=== PATIENT | male | born 1985 | race Caucasian/White ===

== ENCOUNTER 2025-04-01 06:05 | Emergency (ER) | payer OTHER, SELFPAY ==
[2025-04-01 06:08] VITALS: BP 143/97; PULSE 85; RESP 18; TEMP 36.9; O2SAT 96
--- NOTE | 2025-04-01 06:22 | ED_ITS ---
HPI - Animal Bite General Chief Complaint: Animal Bite Stated Complaint: racoon bite Time Seen by Provider: 04/01/25 06:31 History of Present Illness HPI narrative: 40-year-old otherwise healthy male presenting to the emergency department for raccoon bite to the tip of his right middle finger. He is concerned about rabies. He has never had the rabies series before. Wound is to the distal finger tip and does violate into the muscle. No pain or restricted range of motion. No bleeding. No signs of infection currently in this just occurred prior to arrival. No other bites and no other injuries. He states he was just trying to take out the trash and feed one of the raccoons in the trash who bit him. Related Data Allergies Allergy/AdvReac Type Severity Reaction Status Date / Time mold Allergy Unknown Other Verified 04/01/25 06:14 Review of Systems Review of Systems: As reviewed above in HPI Exam Narrative: GENERAL: [Well-appearing, well-nourished, and in no acute distress.] HEAD: [Normocephalic, atraumatic.] EYES: [PERRLA and EOMI.] ENT: Nares clear, no rhinorrhea or epistaxis. Mucous membranes moist. NECK: Supple. CHEST: [Clear to auscultation. No respiratory distress.] HEART: [Regular rate and rhythm]. No murmur heard. [Normal peripheral pulses.] ABDOMEN: [Soft, nondistended], [nontender], [No rigidity or guarding] EXTREMITIES: Normal range of motion. [No edema.] Distal right middle finger tip has a area of punctate wound that goes to the muscle layer from raccoon bite, no bleeding or purulent drainage, no retained foreign material. Good distal cap refill, good range of motion. SKIN: Warm, dry, no rash. NEURO: [No focal deficits]. Alert and oriented [x3.] PSYCH: [Normal mood and affect.] Course Vital Signs Vital signs: Vital Signs Temperature 36.9 C 04/01/25 06:08 Pulse Rate 85 04/01/25 06:08 Respiratory Rate 18 04/01/25 06:08 Blood Pressure 143/97 H 04/01/25 06:08 Pulse Oximetry 96 04/01/25 06:08 Oxygen Delivery Room Air 04/01/25 06:08 Temperature 36.9 C 04/01/25 06:08 Pulse Rate 85 04/01/25 06:08 Respiratory Rate 18 04/01/25 06:08 Blood Pressure 143/97 H 04/01/25 06:08 Pulse Oximetry 96 04/01/25 06:08 Oxygen Delivery Room Air 04/01/25 06:08 MDM - Animal Bite MDM Narrative Medical decision making narrative: 40-year-old otherwise healthy male presenting to the emergency department for raccoon bite to the tip of his right middle finger. He is concerned about rabies. He has never had the rabies series before. Wound is to the distal finger tip and does violate into the muscle. No pain or restricted range of motion. No bleeding. No signs of infection currently in this just occurred prior to arrival. No other bites and no other injuries. He states he was just trying to take out the trash and feed one of the raccoons in the trash who bit him. Patient does have a small puncture wound to the right tip of his middle finger that does go into the soft tissues under the skin. No bleeding or significant wound dehiscence or signs of infection. He is afebrile, normal vital signs. Given patient's high risk mammalian bite with potential for rabies exposure given we did discuss the risks and benefits of initiation of rabies immunoglobulin and vaccine and he would like to proceed. He was given 20 units/kilogram of rabies immunoglobulin locally infiltrated into the wound margins and then the rest into his deltoid. Contralateral arm was given the vaccine. Our infectious disease specialist Sheela Jarrett was called to arrange for continued rabies series on outpatient basis and he was given a 1st dose of Augmentin for bacterial prophylaxis. Patient comfortable with the plan will be discharged home with continued baby series outpatient. He was given signs and symptoms to look out for and discharged. Prescription pad was filled out for days 3 7 and 14 of vaccine series and left with the charge nurse wall infectious disease specialist will come and pick it up to contact the patient for remaining administration. Medical Records Attestation: I reviewed the patient's medical records. Discharge Plan Discharge Clinical Impression: Bitten by raccoon, Rabies contact Patient Disposition: Home Condition: Stable Instructions: Antibiotic Form, Rabies Vaccine (By injection), Rabies Immune Globulin (By injection), Rabies (ED) Additional Instructions: You will have to follow up for the remaining vaccine doses on day 3 day 7 and day 14. We will have our infectious disease specialist reach out and contact you to arrange this on outpatient basis. He will also need antibiotics for the next 5 days and we will prescribe this. Return with any emergent concerns or worsening or new symptoms. Keep the area clean and dry and you can apply bandage over top of the wound. Patient Language: Vietnamese Prescriptions: New amoxicillin-pot clavulanate 875-125 mg tablet 1 tablet PO Q12H 5 Days Qty: 10 0RF Follow-up/Referrals: PHYSICIAN,RESIDENTIAL HOUSEKEEPER [Primary Care Provider] - Time of Disposition: 06:31
[2025-04-01] MEDS: TETANUS,DIPHTHERIA,AC PERTUSSIS ADULT (0.5 ML) BOOSTRIX IM (06:32)
[2025-04-01] MEDS: RABIES IMMUNE GLOBULIN/PF 1,500 UNITS/5 ML VIAL 1500 UNITS IM (06:39)
[2025-04-01] MEDS: RABIES IMMUNE GLOBULIN/PF 900 UNITS/3 ML VIAL IM (06:39)
[2025-04-01] MEDS: RABIES VACCINE (RABAVERT) 2.5 UNITS VIAL IM (06:40)
--- NOTE | 2025-04-01 07:06 | PC.NURSE ---
0624 Desiree with infection control/disease prevention calls to inform that have ERP give immuno globulin at bite site and give the rest of the immuno globulin in L deltoid, give the vaccine and tetanus in the R deltoid. Meds given per orders of ERP and direction of Desiree.
--- OUTSIDE RECORDS SUMMARY | 2025-04-01 07:10 | XMS_ITS | Encounter Summary ---
Author Organization [employer] Address [address] [place] [address] Care Team Providers Care Customer Care Voice Consultant Name Role Phone Daniel Lopez DO Primary Care Provider [phone] Encounter Details Date Type Department Care Team (Late st Contact Info) Description 05/20/2006 Orders Only [facility] [address] [place] [address] [place] [phone] [place] [address] [place] [employer] [address] [place] [phone] Social History Tobacco Use Types Packs/Day Years Used Date Smoking Tobacco: Never Assessed Sex and Gender Information Value Date Recorded Sex Assigned at Not on file 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
--- OUTSIDE RECORDS SUMMARY | 2025-04-01 07:10 | XMS_ITS | Encounter Summary ---
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 Mom will stop back later today to p/u /SE DOCTOR`S RESPONSE: christoph 02/09/06 at 12:05 pm MEDICATIONS: Call in to Pharmacy ADDERALL XR ORAL CAPSULE 24 HR 25 MG, 1 Every Day, 30 Dispensed, 30 Duration/Days Supply, status: CONTINUED, 02/09/2006. DOCTOR`S OTHER RESPONSE: Printed and signed /ARS FINAL ACTION: austin 02/09/06 at 01:02 pm Left message on patient`s recorder or with a family member 02/09/2006 at 01:03 pm. /sb Electronically Signed by: Viry Neri on Thursday, February 09, 2006 documented in this encounter Plan of Treatment Not on file documented as of this encounter Visit Diagnoses Not on filedocumented in this encounter Care Teams Jinrikisha Driver Relationship Specialty Start Date End Date Daniel Lopez DO [address] [place] [phone] PCP - General 11/24/12 documented as of this encounter
--- OUTSIDE RECORDS SUMMARY | 2025-04-01 07:10 | XMS_ITS | Encounter Summary ---
Author Organization [employer] Address [address] [place] [address] Care Team Providers Care Yarn Twister Name Role Phone Daniel Lopez DO Primary Care Provider [phone] Encounter Details Date Type Department Care Team (Late st Contact Info) Description 09/29/2006 Orders Only [facility] [address] [place] [address] [place] [phone] [place] [address] [place] [employer] [address] [place] [phone] Social History Tobacco Use Types Packs/Day Years Used Date Smoking Tobacco: Never Assessed Sex and Gender Information Value Date Recorded Sex Assigned at Not on file Legal Sex Male 3:[address]ER Gender Identity Not on file Sexual Orientation Not on file documented as of this encounter Plan of Treatment Not on file documented as of this encounter Visit Diagnoses Not on filedocumented in this encounter Care Teams Yarn Twister Relationship Specialty Start Date End Date Daniel Lopez DO [address] [place] [phone] PCP - General 11/24/12 documented as of this encounter
--- OUTSIDE RECORDS SUMMARY | 2025-04-01 07:10 | XMS_ITS | Encounter Summary ---
Author Organization [employer] Address 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
--- OUTSIDE RECORDS SUMMARY | 2025-04-01 07:10 | XMS_ITS | Clinical Summary ---
Author Organization [facility] Address [address] [place] [address] Care Team Providers Care Sand Mill Operator Name Role Phone Lenora Prince DO Primary Care Provider [phone] Source Comments [facility],non-owned Affiliates and Associated Physician Practices is amultiple site organization consisting of ambulatory clinics and hospital sitesin [place], [place], [place] and [place]. This disclosure is being madepursuant to the Care Everywhere program and may not contain all information available regarding this patient. Last updated 18.[facility] Allergies No known active allergies Medications * Be aware that medications may not be up to date on this document. Alwaysverify current medications with the patient. Budesonide-Form oterol Fumarate (SYMBICORT IN) Activ e Albuterol Sulfate (PROAIR HFA IN) Active HYDROcodone-jennie taminophen (NORCO) 5-325 MG tablet Take 1 Tab by mouth every 6 hours as needed for Pain 8 Tab 7 Active naproxen (NAPROSYN) 500 MG tablet Take 1 Tab by mouth 2 times daily as needed for Pain 20 Tab 7 Active tiZANidine (ZANAFLEX) 2 MG capsule Take 1 Cap by mouth every 8 hours as needed for Muscle Spasms 15 Cap 7 Active albuterol HFA (PROVENTIL;VENT CATA;PROAIR) 108 (90 BASE) MCG/ACT inhaler Inhale 2 Puffs by mouth every 4 hours as needed for Shortness of Breath or Wheezing 1 Inhaler 1 7 Active Immunizations Immunization Administration Dates Next Due TDAP (7yrs+) 06/28/2017 Social History Tobacco Use Types Packs/Day Years Used Date Smoking Tobacco: Never Smokeless Tobacco: Never Alcohol Use Standard Drinks/Week Comments Yes 0 (1 standard drink = 0.6 oz pur e alcohol) occ Sex and Gender Information Value Date Recorded Sex Assigned at Not on file Legal Sex Male 7:37 AM CDT Gender Identity Not on file Sexual Orientation Not on file Last Filed Vital Signs Vital Sign Reading Time Taken Comments Blood Pressure 167/96 06/28/2017 10:33 AM CDT Pulse 101 06/28/2017 7:38 AM CDT Temperature 36.8 C (98.2 F) 06/28/2017 7:38 AM CDT Respiratory Rate 16 06/28/2017 7:38 AM CDT Oxygen Saturation 95% 06/28/2017 10:33 AM CDT Inhaled Oxygen Concentration - - Weight 172.4 kg (380 lb) 06/28/2017 7:46 AM CDT Height 195.6 cm (6' 5) 06/28/2017 7:46 AM CDT Body Mass Index 45.06 06/28/2017 7:46 AM CDT Plan of Treatment Health Maintenance Due Date Last Done Comments HIV SCREENING 2002 HEPATITIS C SCREENING 01/04/2005 HEPATITIS B VACCINE (1 of 3 - 19+ 3-dose series) 2006 COVID-19 VACCINE (2023-2 5 season) 2024 DEPRESSION SCREENING 09/27/2024 INFLUENZA VACCINE (Season Ended) 2025 DTAP/TDAP/TD VACCINES (2 - T d or Tdap) 06/28/2027 06/28/2017 ZOSTER VACCINE (1 of 2) 2037 HIB VACCINE Aged Out No longer eligi ble based on patient's age to complete this topic HPV VACCINE Aged Out No longer eligi ble based on patient's age to complete this topic MENINGOCOCCAL (Group B) VACC INE SHARED DECISION-MAKING Aged Out No longer eligibl e based on patient's age to complete this topic MENINGOCOCCAL GROUPS A/C/Y/W VACCINE Aged Out No longer eligible b ased on patient's age to complete this topic PNEUMOCOCCAL VACCINE Aged Out No long er eligible based on patient's age to complete this topic Insurance [employer] Liability [facility] Member Subscriber Plan / Payer (Ef fective 2017-Present) Name:Toi Huitron Relation to Subscriber:Self Name:Toi Hiutron Payer ID:[id number] (NAIC) Type:HMO Address: [address] [facility] [place] [address] Care Teams Sand Mill Operator Relationship Specialty Start Date End Date Lenora Prince DO [address] [place] [address] [place] [address] PCP - General Family Medicine 06/28/17
--- OUTSIDE RECORDS SUMMARY | 2025-04-01 07:10 | XMS_ITS | Encounter Summary ---
Author Organization [employer] Address [address] [place] [address] Care Team Providers Care Robot Programmer Name Role Phone Daniel Lopez DO Primary Care Provider [phone] Encounter Details Date Type Department Care Team (Late st Contact Info) Description 11/01/2006 Orders Only [facility] [address] [place] [address] [place] [phone] [place] [address] [place] [employer] [address] [place] [phone] Social History Tobacco Use Types Packs/Day Years Used Date Smoking Tobacco: Never Assessed Sex and Gender Information Value Date Recorded Sex Assigned at Not on file 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
--- OUTSIDE RECORDS SUMMARY | 2025-04-01 07:10 | XMS_ITS | Encounter Summary ---
Author Organization [facility] Address [address] [facility] Attn: Epic Prelude ADT [place] [address] Care Team Providers Care Anodic Treater Name Role Phone Daniel Lopez DO Primary Care Provider [phone] Encounter Details Date Type Department Care Team (Latest Contact Info) Description 03/17/2006 Orders Only Isaias Ho MD [address] [place] [phone] Social History Tobacco Use Types Packs/Day Years Used Date Smoking Tobacco: Never Assessed Sex and Gender Information Value Date Recorded Sex Assigned at Not on file 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 WHO TOOK THE CALL: Caryn Cuarda R GENERAL INFORMATION PATIENT STATUS: Established Patient. LAST VISIT: 06-18-05 WHO CALLED: Patient`s mother called. ALTERNATIVE PHONE NUMBER: [phone] CURRENT ALLERGY LIST: NKDA SECTION 1: REQUESTED ACTION anthony 03/17/06 at 09:55 am: MEDICATION REQUEST: MEDICATION REQUEST: Patient requests a refill. Mom requesting a refill for the Adderall-XR 25mg (I didn't print prescription, wasn't sure due to date of last visit?)/laith DOCTOR`S RESPONSE: christoph 03/17/06 at 10:16 am MEDICATIONS: ADDERALL XR ORAL CAPSULE 24 HR 25 MG, 1 Every Day, 30 Dispensed, 30 Duration/Days Supply, status: CONTINUED, 03/17/2006. FINAL ACTION: christoph 03/17/06 at 10:17 am Electronically Signed by: Isaias Ho MD on Friday, March 17, 2006 documented in this encounter Plan of Treatment Not on file documented as of this encounter Visit Diagnoses Not on filedocumented in this encounter Care Teams Anodic Treater Relationship Specialty Start Date End Date Daniel Lopez DO [address] [place] [phone] PCP - General 11/24/12 documented as of this encounter
--- OUTSIDE RECORDS SUMMARY | 2025-04-01 07:10 | XMS_ITS | Encounter Summary ---
Author Organization [employer] Address [address] [place] [address] Care Team Providers Care Phone Screener Name Role Phone Daniel Lopez DO Primary Care Provider [phone] Encounter Details Date Type Department Care Team (Late st Contact Info) Description 11/30/2006 Orders Only [facility] [address] [place] [address] [place] [phone] [place] [address] [place] [employer] [address] [place] [phone] Social History Tobacco Use Types Packs/Day Years Used Date Smoking Tobacco: Never Assessed Sex and Gender Information Value Date Recorded Sex Assigned at Not on file 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
--- OUTSIDE RECORDS SUMMARY | 2025-04-01 07:10 | XMS_ITS | Encounter Summary ---
Author Organization [employer] Address [address] [place] [address] Care Team Providers Care Salt Maker Name Role Phone Daniel Lopez DO Primary Care Provider [phone] Encounter Details Date Type Department Care Team (Late st Contact Info) Description 07/15/2006 Orders Only [facility] [address] [place] [address] [place] [phone] [place] [address] [place] [employer] [address] [place] [phone] Social History Tobacco Use Types Packs/Day Years Used Date Smoking Tobacco: Never Assessed Sex and Gender Information Value Date Recorded Sex Assigned at Not on file 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
--- OUTSIDE RECORDS SUMMARY | 2025-04-01 07:10 | XMS_ITS | Encounter Summary ---
Author Organization [facility] Address [address] [place] [address] Care Team Providers Care Aerial Crop Duster Name Role Phone Daniel Lopez DO Primary Care Provider [phone] Encounter Details Date Type Department Care Team (Late st Contact Info) Description 11/02/2023 Abstract [facility] [address] [address] [place] [phone] Marc Brown MD [address] [address] [place] [employer] [address] [place] [address] Social History Tobacco Use Types Packs/Day Years Used Date Smoking Tobacco: Never Smokeless Tobacco: Never Alcohol Use Standard Drinks/Week Comments Yes 0 (1 standard drink = 0.6 oz pur e alcohol) occas Sex and Gender Information Value Date Recorded Sex Assigned at Not on file 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
--- OUTSIDE RECORDS SUMMARY | 2025-04-01 07:10 | XMS_ITS | Encounter Summary ---
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 SECTION 1: REQUESTED ACTION austin 12/30/05 at 12:15 pm: MEDICATION REQUEST: MEDICATIONS: ADDERALL XR ORAL CAPSULE 24 HR 25 MG, 1 Every Day, 30 Dispensed, 30 Duration/Days Supply, status: CONTINUED, 08/25/2005. DOCTOR`S RESPONSE: christoph 12/30/05 at 12:42 pm MEDICATIONS: Call in to Pharmacy ADDERALL XR ORAL CAPSULE 24 HR 25 MG, 1 Every Day, 30 Dispensed, 30 Duration/Days Supply, status: CONTINUED, 12/30/2005. DOCTOR`S OTHER RESPONSE: Printed and signed /ARS FINAL ACTION: austin 12/30/05 at 01:03 pm Spoke with patient 12/30/05 at 01:03 pm. Spoke to mom/sb Electronically Signed by: Viry Neri on Friday, December 30, 2005 documented in this encounter Plan of Treatment Not on file documented as of this encounter Visit Diagnoses Not on filedocumented in this encounter Care Teams Oracle Business Analyst Relationship Specialty Start Date End Date Daniel Lopez DO [address] [place] [phone] PCP - General 11/24/12 documented as of this encounter
--- OUTSIDE RECORDS SUMMARY | 2025-04-01 07:10 | XMS_ITS | Clinical Summary ---
Author Organization [facility] Address [address] [address] Care Team Providers Care Health Care Specialist Name Role Phone Daniel Lopez DO Primary Care Provider [phone] Allergies Active Allergy Reactions Criticality Noted Date Comments Horse Dander Shortness of Breath/Wheezing High 06/01 Mold Extracts Unknown 07/13/2013 Medications budesonide-form oteroL (SYMBICORT) 80-4.5 mcg/actuation HFA Aerosol Inhaler Take 2 Puffs by inhalation 2 times daily. 30.6 Gram 1 3 Active Active Problems Problem Noted Date Diagnosed Date Type 2 diabetes mellitus wit hout complication, without long-term current use of insulin 11/15/2023 Elevated blood pressure read ing without diagnosis of hypertension 11/15/2023 Encounter for general adult medical examination without abnormal findings 11/15/2023 Mild intermittent asthma without complication Obstructive sleep apnea 11/15/2023 Prediabetes 07/31/2020 Extrinsic asthma 01/20/2011 ATTN DEFICIT NONHYPERACT 06/18/2005 Resolved Problems Problem Noted Date Diagnosed Date Resolved Date ASTHMA UNSPEC W STATUS ASTH 06/24/2005 07/13/2013 Encounters Date Type Department Care Team Description 03/13/2025 External Device Data ST[facility] ABSTRACTION Provider, Abstract 02/27/2025 External Device Data ST[facility] ABSTRACTION Provider, Abstract 02/22/2025 Orders Only [facility] Internal Medicine - Keira Mcnulty [address] [address] Daniel Lopez DO Type 2 diabetes mellitus without complication, without long-term current use of insulin (CMS/HCC) 01/25/2025 Abstract [facility] Internal Medicine [facility] [address] [address] Daniel Lopez DO 01/22/2025 8:00 AM CDT Office Visit [facility] [address] [address] Ping Hernandez PA Encounter for preventive care (Primary Dx); Type 2 diabetes mellitus without complication, without long-term current use of insulin (CMS/[facility]); Declined influenza vaccine 01/22/2025 Abstract [facility] Internal Medicine [facility] [address] [address] Daniel Lopez DO from Last 3 Months Immunizations Immunization Administration Dates Next Due (ADACEL/BOOSTRIX)(10 YR UP) TDAP VACCINE, 0.5ML, IM 06/28/2017 (PFIZER)(12 YR UP) COVID-19 VACCINE - EMERGENCY USE AUTHORIZATION, MRNA, [id number](PF) 30 MCG/0.3 ML IM SUSP 11/23/2020,10/26/2020 INFLUENZA VACCINE QUADRIVALENT 6 MOS UP PF IM INFLUENZA VACCINE QUADRIVALENT RECOMB 18 YR UP P F IM 06/23/2018 Family History Medical History Relation Name Comments Pancreatic Cancer Father 56 Other Mother in sleep a t age 50, no known cause Relation Name Status Comments Father 56 Mother Social History Tobacco Use Types Packs/Day Years Used Date Smoking Tobacco: Never Smokeless Tobacco: Never Tobacco Cessation:Counseling Given: No Alcohol Use Standard Drinks/Week Comments Yes 0 (1 standard drink = 0.6 oz pur e alcohol) occas Feeling Safe Answer Date Recorded Are you in a relationship wi th someone who hurts you emotionally and/or physically? 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 Gender Identity Not on file Sexual Orientation Not on file Last Filed Vital Signs Vital Sign Reading Time Taken Comments Blood Pressure 122/70 01/22/2025 8:04 AM CDT Pulse 71 01/22/2025 8:04 AM CDT Temperature 37.6 C (99.7 F) 11/16/2023 3:10 PM FIRE HYDRANT MECHANIC RN notified Respiratory Rate 17 11/16/2023 3:10 PM FIRE HYDRANT MECHANIC Oxygen Saturation 96% 01/22/2025 8:04 AM CDT Inhaled Oxygen Concentration - - Weight 123.4 kg (272 lb) 01/22/2025 8:04 AM CDT Height 195.6 cm (6' 5) 01/22/2025 8:04 AM CDT Body Mass Index 32.25 01/22/2025 8:04 AM CDT Plan of Treatment Health Maintenance Due Date Last Done Comments HEPATITIS B VACCINES (1 of 3 - 19+ 3-dose series) 2006 COVID-19 Vaccine ( season) 2024 11/23/2020, 10/26/2020 DIABETES ANNUAL FOOT EXAM 07/21/2024 07/21/2023, 12/2021 DIABETES HBA1C Q 6 MONTHS 07/26/20242023, 11/02/2023, 07/26/2023, Additional history exists LDL CHOLESTEROL ANNUAL 11/02/2024 4, 03/10/2023, 12/29/2021, Additional history exists DIABETES ANNUAL RETINAL EXAM 11/19/2024 11/19/2023 DIABETES MICROALBUMIN ANNUAL SCREEN 01/24/2025 01/25/2024, 07/31/2020 DIABETES: A1C (Auto Order) 01/24/202501/24, 11/02/2023, 07/26/2023, Additional history exists INFLUENZA VACCINE (#1) 2025 5, 07/21/2023, 12/29/2021, Additional history exists DTAP/TDAP/TD VACCINES (2 - Td or Tdap) 06/28/2027 06/28/2017 HPV VACCINES Aged Out No longer eligi ble based on patient's age to complete this topic Medical Devices Implanted Type Area Cnc Specialist Device Identifier Shelf Expiration Date Model / Serial / Lot Seamguard Endogia 60 Blk [id number] - [id number] Implanted:Qt y: 1 on 11/15/2023 by Marc Brown MD at [facility] N/A: Stomach [employer] [id number] 06/07/2026 12BSGTRI 60B / / [id number] Seamguard Endogia 60 Blk [id number] - [id number] Implanted:Qt y: 1 on 11/15/2023 by Marc Brown MD at [facility] N/A: Stomach [employer] [id number] 06/07/2026 12BSGTRI 60B / / [id number] Seamguard Endogia 60 Prpl [id number] - [id number] Implanted:Qt y: 1 on 11/15/2023 by Marc Brown MD at [facility] N/A: Stomach [employer] [id number] 06/16/2026 12BSGTRI 60P / / [id number] Seamguard Endogia 60 Prpl [id number] - [id number] Implanted:Qt y: 1 on 11/15/2023 by Marc Brown MD at [facility] N/A: Stomach [employer] [id number] 06/16/2026 12BSGTRI 60P / / [id number] Seamguard Endogia 60 Prpl [id number] - [id number] Implanted:Qt y: 1 on 11/15/2023 by Marc Brown MD at [facility] N/A: Stomach [employer] [id number] 06/16/2026 12BSGTRI 60P / / [id number] Procedures Procedure Name Priority Date/Time Associated Diagnosis Comments MICROALBUMIN/CREATIN INE RATIO, RANDOM UR Routine 01/25/2024 10:30 AM CDT Type 2 diabetes mellitus without complication, without long-term current use of insulin ([facility]) HEMOGLOBIN A1C Routine 01/25/2024 10:22 AM CDT DIABETES EYE EXAM Routine 11/19/2023 12:27 PM FIRE HYDRANT MECHANIC LIPID PANEL Routine 11/02/2023 2:33 PM FIRE HYDRANT MECHANIC Encounter for preventive care from Last 3 Months or Most Recently Relevant to Health Maintenance Results * (ABNORMAL) MICROALBUMIN/CREATININE RATIO, RANDOM UR (01/25/2024 10:30 AM CDT) Creatinine, Urine 354(H) 20 - 320 mg/dL [facility] Comment: Verified by repeat analysis. MICROALBUMIN, URINE 1.3 See Note: mg/dL [facility] Comment: Reference Range: Reference Range Not established MICROALBUMIN/CREAT RATIO, UR 4 <30 mg/g creat [facility] Comment: The ADA defines abnormalities in albumin excretion as follows: Albuminuria Category Result (mg/g creatinine) Normal to Mildly increased <30 Moderately increased 30-299 Severely increased > OR = 300 The ADA recommends that at least two of three specimens collected within a 3-6 month period be abnormal before considering a patient to be within a diagnostic category. Test Performed at: [facility] [address] [phone] Debi Burk MD Urine URINE SPECIMEN OBTAINED BY CLEAN CATCH PROCEDURE / Unknown 01/25/2024 10:30 AM CDT 01/25/2024 10:31 AM CDT Viry CRAWFORD URINE ORDERABLES Final Result [facility] [phone] [facility] [address] [phone] * (ABNORMAL) HEMOGLOBIN A1C (01/25/2024 10:22 AM CDT) HEMOGLOBIN A1C 6.2(H) <5.7 % of total Hgb [facility] Comment: For someone without known diabetes, a hemoglobin A1c value between 5.7% and 6.4% is consistent with prediabetes and should be confirmed with a follow-up test. For someone with known diabetes, a value <7% indicates that their diabetes is well controlled. A1c targets should be individualized based on duration of diabetes, age, comorbid conditions, and other considerations. This assay result is consistent with an increased risk of diabetes. Currently, no consensus exists regarding use of hemoglobin A1c for diagnosis of diabetes for children. ESTIMATED AVERAGE GLUCOSE (MG/DL) 131 mg/dL [facility] ESTIMATED AVERAGE GLUCOSE (MMOL/L) 7.3 mmol/L [facility] Comment: This test was performed on the Lincoln juan c c503 platform. Effective 12/13/23, a change in test platforms from the Reyes Otolaryngology Surgeon to the Lincoln juan c c503 may have shifted HbA1c results compared to historical results. Based on laboratory validation testing conducted at [facility], the Lincoln platform relative to the Reyes platform had an average increase in HbA1c value of < or = 0.3%. This difference is within accepted variability established by the National Glycohemoglobin Standardization Program. Note that not all individuals will have had a shift in their results and direct comparisons between historical and current results for testing conducted on different platforms is not recommended. FASTING:NO FASTING: NO Test Performed at: [facility] [address] [place] [address] [facility]Anna Marika Burk 01/25/2024 10:2 2 AM CDT 01/25/2024 10:26 AM CDT Viry CRAWFORD CHEMISTRY ORDERABLES Final Re sult [facility] [phone] [facility] [address] [place] [address] * HM DIABETES EYE EXAM (11/19/2023 12:27 PM FIRE HYDRANT MECHANIC) us Daniel Lopez DO HEALTH MAINTENANCE Final Result [facility] CLIA# [id number] [address] [facility] [place] [address] * (ABNORMAL) LIPID PANEL (11/02/2023 2:33 PM FIRE HYDRANT MECHANIC) [facility] Signature CHOLESTEROL 177 <200 mg/dL [facility] HDL 41 > OR = 40 mg/dL [facility] TRIGLYCERIDE 172(H) <150 mg/dL [facility] LDL CALCULATED 107(H) mg/dL (calc) [facility] Comment: Reference range: <100 Desirable range <100 mg/dL for primary prevention; <70 mg/dL for patients with CHD or diabetic patients with > or = 2 CHD risk factors. LDL-C is now calculated using the Merle calculation, which is a validated novel method providing better accuracy than the Friedewald equation in the estimation of LDL-C. Rj GIFFORD et al. JULIO. 2013;310(19): 3935-4829 (http://education.AB Tasty/faq/LZF903) CHOL/HDL RATIO 4.3 <5.0 (calc) [facility] TOTAL NON-HDL CHOL(LDL+VLDL) 136(H) <130 mg/dL (calc) [facility] Comment: For patients with diabetes plus 1 major ASCVD risk factor, treating to a non-HDL-C goal of <100 mg/dL (LDL-C of <70 mg/dL) is considered a therapeutic option. Test Performed at: [facility] [address] [address] Debi Burk Blood 11/02/2023 2:33 PM FIRE HYDRANT MECHANIC 11/02/2023 2:34 PM FIRE HYDRANT MECHANIC Viry CRAWFORD CHEMISTRY ORDERABLES Final Re sult [facility] [phone] [facility] [address] [phone] from Last 3 Months or Most Recently Relevant to Health Maintenance Insurance RX DOE PLANS (INTERNAL) [employer] [employer] OPEN ACCESS HMO * Guarantor: [facility] (OM) Account Type Relation to Patient Date of Phone Billing Address Corporate Other [id number] [address] [address] Advance Directives For more information, please contact: [phone] * Full Code (Latest Code Status on File) Date Activated Date Inactivated Comments 11/15/2023 12:38 PM 11/16/2023 5:47 PM * Full Code Date Activated Date Inactivated Comments 11/15/2023 11:43 AM 11/15/2023 12:38 PM * Full Code Date Activated Date Inactivated Comments 12/09/2018 8:39 AM 12/09/2018 11:29 AM Care Teams Health Care Specialist Relationship Specialty Start Date End Date Daniel Lopez DO [address] [phone] PCP - General 11/24/12
--- OUTSIDE RECORDS SUMMARY | 2025-04-01 07:10 | XMS_ITS | Encounter Summary ---
Author Organization [facility] Address [address] [place] [address] Care Team Providers Care Assignment Desk Editor Name Role Phone Daniel Lopez DO Primary Care Provider [phone] Encounter Details Date Type Department Care Team (Late st Contact Info) Description 06/18/2005 Outpatient Historical [facility] MEDICINE [address] [place] [address] 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 Gender Identity Not on file Sexual Orientation Not on file documented as of this encounter Last Filed Vital Signs Vital Sign Reading Time Taken Comments Blood Pressure 122/76 06/18/2005 11:00 AM CDT Pulse 72 06/18/2005 11:00 AM CDT Temperature 35.6 C (96.1 F) 06/18/2005 11:00 AM CDT Respiratory Rate 16 06/18/2005 11:00 AM CDT Oxygen Saturation - - Inhaled Oxygen Concentration - - Weight 134.3 kg (296 lb) 06/18/2005 11:00 AM CDT Height 196.9 cm (6' 5.5) 06/18/2005 11:00 AM CD T Body Mass Index 34.65 06/18/2005 11:00 AM CDT Body Mass Index Percentile 97.84% 06/18/2005 11: 00 AM CDT Growth Chart: CDC (Boys, 2-2 0 Years) documented in this encounter Plan of Treatment Not on file documented as of this encounter Visit Diagnoses Not on filedocumented in this encounter Care Teams Assignment Desk Editor Relationship Specialty Start Date End Date Daniel Lopez DO [address] [place] [phone] PCP - General 11/24/12 documented as of this encounter
--- OUTSIDE RECORDS SUMMARY | 2025-04-01 07:10 | XMS_ITS | Encounter Summary ---
Author Organization [employer] Address [address] [place] [address] Care Team Providers Care Anesthesia Director Name Role Phone Daniel Lopez DO Primary Care Provider [phone] Encounter Details Date Type Department Care Team (Late st Contact Info) Description 08/18/2006 Orders Only [facility] [address] [place] [address] [address] [phone] [place] [address] [place] [employer] [address] [place] [phone] Social History Tobacco Use Types Packs/Day Years Used Date Smoking Tobacco: Never Assessed Sex and Gender Information Value Date Recorded Sex Assigned at Not on file 

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
== END 2025-04-01 07:12 | disposition home or self-care (01) ==
LOC: ANHED 07:08
PROVIDERS: Emergency Provider Student in an Organized Health Care Education/Training Program
DX: S61.252A Open bite of right middle finger without damage to nail, initial encounter (principal); W55.51XA Bitten by raccoon, initial encounter; Z20.3 Contact with and (suspected) exposure to rabies; Z23 Encounter for immunization
CPT/HCPCS: 90375; 90471; 90472; 90675; 90715; 96372; 99284; A9270

== ENCOUNTER 2025-04-04 06:55 | Outpatient (RCR) | payer OTHER, SELFPAY ==
--- NOTE | 2025-04-04 07:24 | PC.NURSE ---
AMBULATORY TO LAB DRAW STATION FOR OUTPATIENT RABIES VACCINE AFTER RACCOON BITE. STATES IS FEELING WELL. DENIES BODY ACHES, NAUSEA, INJECTION SITE SORENESS. BITE ON INDEX FINGER IS SLIGHTLY RED, NO TENDERNESS, NO DRAINAGE, NO WARMTH. TO RETURN 04/08/2025 FOR NEXT INJECTION. INSTRUCTED TO GO TO KEYBOARD INSTRUMENT TUNER AND ASK TO PAGE THE WASHING MACHINE MECHANIC FOR NEXT INJECTION. VOICES UNDERSTANDING. HAS BUSINESS CARD WITH NAME, PHONE NUMBER AND DATES TO RETURN.
[2025-04-08] MEDS: RABIES VACCINE (RABAVERT) 2.5 UNITS VIAL IM (07:01)
[2025-04-15] MEDS: RABIES VACCINE (RABAVERT) 2.5 UNITS VIAL IM (06:47)
== END 2025-07-03 23:59 | disposition home or self-care (01) ==
LOC: ANHVASCINF 06:55
PROVIDERS: Visit Provider Student in an Organized Health Care Education/Training Program
DX: Z20.3 Contact with and (suspected) exposure to rabies (principal); Z29.14 Encounter for prophylactic rabies immune globulin
CPT/HCPCS: 90471; 90675

== ENCOUNTER 2025-06-29 08:28 | Emergency (ER) | payer OTHER, SELFPAY ==
--- NOTE | ~2025-06-29 | XR_ITS ---
EXAMINATION: XR foot LT min 3V DATE: 06/29/2025 08:46 INDICATION: Pain at the left fifth toe TECHNIQUE: Dorsoplantar, two oblique and lateral views of the left fifth foot were obtained. COMPARISON: None. FINDINGS: There are comminuted Y-shaped fractures at the heads and necks of the fourth and fifth proximal phalanges which include transverse fracture across the neck was and longitudinal fracture planes extending to the distal articular surfaces. There is one half shaft width lateral displacement and 35 degrees lateral angulation of the fracture plane at the neck of the fifth proximal phalanx with no significant displacement of a fracture plane extending to the articular surface. There is minimal displacement and slight angulation of the fracture at the neck of the fourth proximal phalanx with 2 mm lucent fracture gap at the central aspect of the distal articular surface. No other fractures identified. Left foot alignment is otherwise normal. 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 IMPRESSION: 1. Comminuted intra-articular fracture at the distal aspect of the fourth and fifth proximal phalanges. Reviewed, dictated and finalized at location A. IMPRESSION: 1. Comminuted intra-articular fracture at the distal aspect of the fourth and f ifth proximal phalanges.
--- NOTE | ~2025-06-29 | XR_ITS ---
Examination: XR foot LT 2V Clinical History: Post reduction 5th toe Comparison: 1 hour prior Technique: 2 views left foot Findings/impression: 1. Mild improvement but persistent malalignment of fracture along fifth toe proximal phalanx. 2. Comminuted fracture fourth toe head of proximal phalanx as before. 3. No other acute abnormality identified. Reviewed, dictated and finalized at location R.
--- NOTE | 2025-06-29 08:40 | ED_ITS ---
HPI - Extremity Injury (Lower) General Chief Complaint: Extremity Injury, Lower Stated Complaint: Left Foot Toe Pain Time Seen by Provider: 06/29/25 08:40 Source: patient, RN notes reviewed and old records reviewed Mode of arrival: ambulatory Limitations: no limitations History of Present Illness HPI Narrative: 40-year-old male presents to the [facility] with complaints of left 5th toe pain. States that he jammed his foot into a doorjamb while playing with his dog. Related Data Allergies Allergy/AdvReac Type Severity Reaction Status Date / Time mold Allergy Unknown Other Verified 06/29/25 08:30 Review of Systems Review of Systems: All systems reviewed & are unremarkable except as noted in HPI and below Constitutional: Constitutional: Reports no additional constitutional complaints ENT: Reports system reviewed and no additional complaints, except as documented Cardiovascular: Cardiovascular: Reports no additional cardiovascular complaints, Denies chest pain and Denies dyspnea Respiratory: Respiratory: Reports no additional respiratory complaints, Denies chest congestion, Denies cough and Denies dyspnea Musculoskeletal: Musculoskeletal: Reports as per HPI Integumentary/Breasts: Skin/Breast: Reports system reviewed and no additional complaints, except as docu PMFSH Comments At the time of my signature, I reviewed and agree with the nursing past medical, surgical, social, and family history. There is no relevant family history pertinent to the patient complaint. Exam Const: General: cooperative, healthy appearing, comfortable, no acute distress, well developed, alert and well nourished Nutritional Appearance: well nourished Orientation/consciousness: patient oriented x3 Limitations: no limitations HENMT: Head: normal to inspection Eyes: General: appearance normal, both eyes and all related structures Alignment and Position: alignment normal Neck: Neck: normal visual inspection, full ROM, no lymphadenopathy and no meningeal signs Chest: Chest palpation & inspection: normal inspection of the chest Resp: Effort & Inspection: normal respiratory effort and able to speak in complete sentences Cardio: Rate: regular rate Skin: General skin exam: normal color and no rashes or lesions noted Neuro: General: patient oriented x3, gait normal, moves all extremities and no meningeal signs Cognition (Neuro): normal cognition Speech: normal speech Gait exam (Neuro): Normal gait present Extrem: General: normal to inspection, full ROM, capillary refill normal and normal gait Right lower extremity: foot Details: tenderness Location: of another digit Location: the 4th digit, the 5th digit and at the MTP joint Psych: Appearance: grossly normal and well kempt Mental Status: mental status grossly normal Speech and movement: Normal speech and movement present and Clear speech present Affect: normal affect Attitude: cooperative Course Course Level of Care: Express Care Visit Vital Signs Vital signs: Vital Signs Temperature 97.8 F 06/29/25 08:44 Pulse Rate 71 06/29/25 08:44 Respiratory Rate 16 06/29/25 08:44 Blood Pressure 116/81 06/29/25 08:44 Pulse Oximetry 100 06/29/25 08:44 Oxygen Delivery Room Air 06/29/25 08:44 Temperature 97.8 F 06/29/25 08:44 Pulse Rate 71 06/29/25 08:44 Respiratory Rate 16 06/29/25 08:44 Blood Pressure 116/81 06/29/25 08:44 Pulse Oximetry 100 06/29/25 08:44 Oxygen Delivery Room Air 06/29/25 08:44 Reviewed MDM - Extremity Injury (Lower) MDM Narrative Medical decision making narrative: Patient sitting in exam room. Patient is nontoxic, vitals stable. Patient presents with toe pain after stubbing it on a door jamb. Dislocated 5th toe noted. X-ray showed fractures of 4th and 5th toe. Attempted reduction of the toe. Better alignment noted on x-ray. Call podiatry. Spoke with Dr. Garcia is is office, will call patient for a follow-up appointment. Currently doctor is not in office today due to surgery. Discharge instructions reviewed with patient, as well as provided in writing per nursing staff. The instructions also include specific and strict return/GO TO THE ER as well as f/u information. All questions have been answered, and the patient deny any further questions with discharge and discharge plan. Some parts of this dictation were generated by voice recognition software and may contain typographical and/or grammatical inaccuracies. Differential Diagnosis Differential diagnosis: Likely fracture of toe and other (Contusion) Imaging Data Radiologist's impression: EXAMINATION: XR foot LT min 3V DATE: 06/29/2025 08:46 INDICATION: Pain at the left fifth toe TECHNIQUE: Dorsoplantar, two oblique and lateral views of the left fifth foot were obtained. COMPARISON: None. FINDINGS: There are comminuted Y-shaped fractures at the heads and necks of the fourth and fifth proximal phalanges which include transverse fracture across the neck was and longitudinal fracture planes extending to the distal articular surfaces. There is one half shaft width lateral displacement and 35 degrees lateral angulation of the fracture plane at the neck of the fifth proximal phalanx with no significant displacement of a fracture plane extending to the articular surface. There is minimal displacement and slight angulation of the fracture at the neck of the fourth proximal phalanx with 2 mm lucent fracture gap at the central aspect of the distal articular surface. No other fractures identified. Left foot alignment is otherwise normal. 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 IMPRESSION: 1. Comminuted intra-articular fracture at the distal aspect of the fourth and fifth proximal phalanges. Examination: XR foot LT 2V Clinical History: Post reduction 5th toe Comparison: 1 hour prior Technique: 2 views left foot Findings/impression: 1. Mild improvement but persistent malalignment of fracture along fifth toe proximal phalanx. 2. Comminuted fracture fourth toe head of proximal phalanx as before. 3. No other acute abnormality identified. Critical Care Time Critical Care Time Critical Care Time: No Discharge Plan Discharge Clinical Impression: Fracture of toe of left foot Qualifiers: Encounter type: initial encounter Toe: unspecified toe Fracture type: closed Fracture alignment: displaced Qualified Code(s): S92.912A - Unspecified fracture of left toe(s), initial encounter for closed fracture Patient Disposition: Home Condition: Stable Instructions: Toe Fracture (ED) Additional Instructions: Rest, ice and elevate every 2-3 hours for 15-20 minutes while awake. Take Motrin alternating with Tylenol as needed for pain Wear a hard-soled shoe if possible, keep jadyn tape. Patient Language: Fijian Follow-up/Referrals: Darnell Martin Jr., DPM [Physician, Podiatry] - 3 Days Clinical Impression: Fracture of toe of left foot PHYSICIAN,MANUFACTURING TECHNOLOGY ANALYST [Primary Care Provider, Internal Medicine] Stand Alone Forms: Work/School Release IP Time of Disposition: 09:43
[2025-06-29 08:44] VITALS: BP 116/81; PULSE 71; RESP 16; TEMP 36.6; O2SAT 100
== END 2025-06-29 10:00 | disposition home or self-care (01) ==
PROVIDERS: Emergency Provider Nurse Practitioner
DX: S92.512A Displaced fracture of proximal phalanx of left lesser toe(s), initial encounter for closed fracture (principal); W22.09XA Striking against other stationary object, initial encounter
CPT/HCPCS: 28515; 73620; 73630; 99214; 99215; G0463